=== PATIENT | female | born 1935 | race Caucasian/White ===

== ENCOUNTER → 2017-10-29 07:46 | Outpatient (CLI) | payer MEDICARE, SELFPAY ==
[2017-10-29 08:38] LABS: Basophils # 0.1 K/mm3 (0-0.2); Basophils % 0.8 % (0.1-2.0); Eosinophils # 0.3 K/mm3 (0.0-0.4); Eosinophils % 5.5 % (0.1-12.0); Hematocrit 46.6 % (37.0-47.0); Hemoglobin 15.1 g/dL (12.2-16.2); Lymphocytes # 3.4 K/mm3 (0.7-4.5); Lymphocytes % 57.2 K/mm3 (10-50); Mean Corpuscular HGB Conc 32.4 g/dL (31.8-35.4); Mean Corpuscular Hemoglobin 31.1 pg (27.0-31.2); Mean Corpuscular Volume 96.1 fl (81-99); Mean Platelet Volume 8.5 fl (7.4-10.4); Monocytes # 0.4 K/mm3 (0.1-1.0); Monocytes % 6.1 % (1.7-9.3); Neutrophils # 1.8 K/mm3 (1.8-7.8); Neutrophils % 30.5 % (37.0-80.0); Platelet Count 228 K/mm3 (142-424); Red Blood Count 4.85 M/mm3 (4.20-5.40); Red Cell Distribution Width 12.7 % (11.5-17.5); White Blood Count 5.9 K/mm3 (4.8-10.8)
[2017-10-29 08:40] LABS: MANUAL DIFFERENTIAL MANUAL DIFFERENTIAL (MANUAL DIFF)
[2017-10-29 10:42] LABS: Alanine Aminotransferase 33 U/L (12-78); Albumin Level 4.1 gm/dL (3.4-5.0); Albumin/Globulin Ratio 1.1 (1.1-1.8); Alkaline Phosphatase 91 U/L (46-116); Anion Gap 10.5 mEq/L (5-15); Aspartate Amino Transferase 26 U/L (15-37); Bilirubin,Total 0.4 mg/dL (0.2-1.0); Blood Urea Nitrogen 16 mg/dL (7-18); Calcium 9.8 mg/dL (8.5-10.1); Carbon Dioxide 31 mmol/L (21.0-32.0); Chloride 107 mmol/L (98-107); Chol/HDL Ratio 2.7 (1-3.5); Cholesterol 166 mg/dL (140-200); Creatinine,Serum 0.73 mg/dL (0.55-1.02); Estimated Glomerular Filt Rate 77 ml/min (>60); GFR (African American) 93 ML/MIN (>60); Globulin 3.6 gm/dl (1.3-3.2); Glucose 99 mg/dL (74-106); HDL Cholesterol 61 mg/dL (29-89); LDL Cholesterol 81 mg/dL (0-130); Potassium 4.5 mmoL/L (3.5-5.1); Sodium 144 mmol/L (136-145); Total Protein,Serum 7.7 gm/dL (6.4-8.2); Triglycerides 121 mg/dL (30-200); VLDL Cholesterol 24 mg/dL (0-40)
[2017-10-29 13:24] LABS: Eosinophils % 6 % (0-3); Lymphocytes % 55 % (10-50); Monocytes % 5 % (2-9); Neutrophils % 22 % (42-76); Total Cells Counted 100
[2017-10-29 13:26] LABS: Platelet Estimate Normal; RBC Morphology Normal
== END ==
PROVIDERS: Visit Provider Family Medicine
DX: E78.5 Hyperlipidemia, unspecified (principal)
CPT/HCPCS: 36415; 80053; 80061; 85007; 85025

== ENCOUNTER → 2018-02-03 09:01 | Outpatient (CLI) | payer MEDICARE, SELFPAY ==
--- NOTE | 2018-02-03 09:04 | MM_ITS ---
MM Dig screening mamm BI w/CAD ORDERING PHYSICIAN : Sandro Herrera MD PATIENT AGE: 82 years GENDER: Female COMPARISON: January 2017, 2015, December 2014. INDICATION: ITS.REASON: SCREENING No hormones no new complaints. Previous stereotactic biopsy left breast. Mother with breast cancer. TECHNIQUE: Standard CC and MLO images were obtained. R2 CAD reviewed. FINDINGS: Moderately dense breast tissue is seen at the central cone, and extending to the superior breast bilaterally Overall architecture is similar to previous studies with no dominant mass. There are numerous scattered benign calcifications bilaterally which appears similar to previous studies. Some loosely grouped but appear stable.. Multivessel Vascular calcifications again noted & can reflect associated underlying coronary artery disease RIGHT BREAST:No new findings of significant concern Numerous scattered punctate calcifications and as stated some are partially grouped but without significant change since previous studies a follow-up in one year would be adequate LEFT BREAST: No new findings of significant concern Numerous scattered punctate calcifications and as stated some are partially grouped but without significant change since previous studies a follow-up in one year would be adequate 2 metallic MicroMark marker from previous stereotactic biopsies at the precentral left breast again noted. IMPRESSION: ======== No new findings of significant concern. Follow-up in one year recommended Dense breast for age bilaterally decreased sensitivity mammography, as do the numerous scattered calcifications bilaterally most compatible with benign adenosis Bilateral follow-up in one year recommended for this age patient with above appearance BI-RADS Category: 2 Benign Finding(s) RECOMMENDED FOLLOW-UP: 1YR 1 YEAR FOLLOW-UP (A letter has been sent to the patient regarding results of the study.)
== END ==
PROVIDERS: PCP Family Medicine; Visit Provider Family Medicine
DX: Z12.31 Encounter for screening mammogram for malignant neoplasm of breast (principal)
CPT/HCPCS: 77067

== ENCOUNTER → 2018-04-17 14:36 | Outpatient (CLI) | payer MEDICARE, SELFPAY ==
--- NOTE | 2018-04-17 14:41 | NVE_ITS ---
Venous Exam Indications: 782.3 Edema. IMPRESSIONS 1. No evidence of deep vein thrombosis involving the right lower extremity 2. Acute superficial vein thrombosis involving the right great saphenous vein History: Varicose veins of the right lower extremity. Thrombophlebitis involving the right lower extremity. Medications: Aspirin, 81 mg daily. Patient noticed her right calf was tender 04/12/18. On 04/15/18 patient noticed new onset edema in the RLE. Patient has varicose veins with prominent, palpable "knotting" around the medial popliteal region. Patient denies trauma. Right lower extremity venous duplex evaluation. Doppler flow study including spectral analysis, color and nagel scale imaging. Location: Vascular laboratory. Patient status: Outpatient. CRITICAL FINDINGS - Reported to: Madeleine Caba - Read back and verified. - 04/17/18 - 15:15 - RLE positive for SVT in GSV Tables: Venous flow and imaging: + + + + Location Overall Flow properties + + + + Right common femoral Patent Normal phasicity; spontaneous; normal augmentation; compressible + + + + Right saphenofemoral Patent Compressible junction + + + + Right profunda femoral Patent Compressible + + + + Right femoral Patent Normal phasicity; spontaneous; normal augmentation; compressible + + + + Right greater saphenous Totally occluded Noncompressible + + + + Right popliteal Patent Normal phasicity ; spontaneous; normal augmentation; compressible + + + + Right posterior tibial Patent Compressible + + + + Right peroneal Patent Compressible + + + + Right gastrocnemius Patent Compressible + + + + Right soleal Patent Compressible + + + + (Report amended ) Electronically signed by: Donavan Sims [id number]
== END ==
PROVIDERS: PCP Physician Assistant; Visit Provider Physician Assistant
DX: I80.291 Phlebitis and thrombophlebitis of other deep vessels of right lower extremity (principal); R60.1 Generalized edema
CPT/HCPCS: 93971

== ENCOUNTER → 2018-11-04 10:10 | Outpatient (POV) | payer MEDICARE, SELFPAY | PROVIDERS: Visit Provider Dermatology | DX: Z00.00 Encounter for general adult medical examination without abnormal findings (principal) ==

== ENCOUNTER → 2018-12-11 06:56 | Outpatient (CLI) | payer MEDICARE, SELFPAY ==
[2018-12-11 08:03] LABS: Basophils # 0.1 K/mm3 (0-0.2); Basophils % 0.5 % (0.1-2.0); Eosinophils # 0.4 K/mm3 (0.0-0.4); Hematocrit 41.3 % (37.0-47.0); Hemoglobin 13.1 g/dL (12.2-16.2); Lymphocytes # 3.5 K/mm3 (0.7-4.5); Lymphocytes % 40.3 % (10-50); Mean Corpuscular HGB Conc 31.8 g/dL (31.8-35.4); Mean Corpuscular Hemoglobin 29.4 pg (27.0-31.2); Mean Corpuscular Volume 92.6 fl (81-99); Monocytes # 0.5 K/mm3 (0.1-1.0); Monocytes % 5.4 % (1.7-9.3); Neutrophils # 4.2 K/mm3 (1.8-7.8); Neutrophils % 48.8 % (37.0-80.0); Platelet Count 200 K/mm3 (142-424); Red Blood Count 4.46 M/mm3 (4.20-5.40); White Blood Count 8.6 K/mm3 (4.8-10.8)
[2018-12-11 08:34] LABS: Alanine Aminotransferase 31 U/L (12-78); Albumin Level 3.7 gm/dL (3.4-5.0); Albumin/Globulin Ratio 1.2 (1.1-1.8); Alkaline Phosphatase 83 U/L (46-116); Anion Gap 10.1 mEq/L (5-15); Aspartate Amino Transferase 18 U/L (15-37); Bilirubin,Total 0.4 mg/dL (0.2-1.0); Blood Urea Nitrogen 17 mg/dL (7-18); Carbon Dioxide 28 mmol/L (21.0-32.0); Chloride 108 mmol/L (98-107); Chol/HDL Ratio 3.1 (1-3.5); Cholesterol 161 mg/dL (140-200); Creatinine,Serum 0.76 mg/dL (0.55-1.02); Estimated Glomerular Filt Rate 73 ml/min (>60); GFR (African American) 88 ML/MIN (>60); Globulin 3.2 gm/dl (1.3-3.2); Glucose 91 mg/dL (74-106); HDL Cholesterol 52 mg/dL (29-89); LDL Cholesterol 89 mg/dL (0-130); Potassium 4.1 mmoL/L (3.5-5.1); Sodium 142 mmol/L (136-145); Total Protein,Serum 6.9 gm/dL (6.4-8.2); Triglycerides 99 mg/dL (30-200); VLDL Cholesterol 20 mg/dL (0-40)
[2018-12-12 17:53] LABS: Vitamin D 25 Hydroxy 31.3 ng/mL (30.0-100.0)
== END ==
PROVIDERS: PCP Family Medicine; Visit Provider Family Medicine
DX: E78.5 Hyperlipidemia, unspecified (principal); M85.89 Other specified disorders of bone density and structure, multiple sites
CPT/HCPCS: 36415; 80053; 80061; 82652; 85025

== ENCOUNTER → 2018-12-12 12:30 | Outpatient (CLI) | payer MEDICARE, SELFPAY ==
--- NOTE | 2018-12-12 12:36 | XR_ITS ---
XR DEXA axial skeleton HISTORY: ITS.REASON: OSTEOPENIA ORDERING PHYSICIAN: Sandro Herrera MD PATIENT AGE: 83 years COMPARISON: 09/03/2011 FINDINGS: The BMD measured at the Forearm radius 33% is 0.619 g/cm squared with a T score of -3.0. This is considered Osteoporotic according to the World Health Organization criteria. Fracture risk is High. Treatment is advised. The mean hip density has a T score of -1.4 which is decreased by 4.5%. IMPRESSION: Osteoporosis with high fracture risk. Treatment 5. Suggest follow-up exam November 2019
== END ==
PROVIDERS: PCP Family Medicine; Visit Provider Family Medicine
DX: M85.89 Other specified disorders of bone density and structure, multiple sites (principal); Z78.0 Asymptomatic menopausal state
CPT/HCPCS: 77080

== ENCOUNTER → 2019-03-06 09:32 | Outpatient (CLI) | payer MEDICARE, SELFPAY ==
--- NOTE | 2019-03-06 10:47 | MM_ITS ---
PROCEDURE: MM DIG SCREENING MAMM BI W/CAD Patient Age:83Y CLINICAL INDICATION: SCREENING routine screening mammogram. No hormones no new complaints. Previous stereotactic biopsy left breast benign results. Family history: Mother with breast cancer premenopausal. Maternal aunts with breast cancer COMPARISON: [facility] DIG MAMM-DX UNI-LT from 05/20/2013 [facility] DIG MAMM-SCREEN [place] from 01/27/2015 [facility] DIG MAMM-SCREEN [place] from 01/31/2016 [facility] DIG MAMM-SCREEN [place] W/CAD from 02/01/2017 [facility] MM Dig screening mamm BI w/CAD from 02/03/2018 TECHNIQUE: Standard CC and MLO images were obtained. R2 CAD reviewed. FINDINGS: Moderate breast density bilaterally scattered calcifications Right breast: Small tight cluster of tiny calcifications seen at the inferior/medial central left breast. These small calcifications seen to have some very slight progression on the MLO view., however on the CC view of the appear similar to 2017. Although more likely benign-and similar to previous areas previously sampled, this cluster a calcifications would benefit from magnification spot views 90 degree and CC view to further evaluate. Particularly with the patient's positive family history Left breast: Previous metallic marker from prior stereotactic biopsy deep central left breast; and another at at the medial left breast. There is a small grouping calcifications and medial breast a near this marker on CC view that seem to dissipate and scatter on MLO view. Most likely adenosis and I believe these are stable but suggest similar magnification views when patient returns for reference baseline IMPRESSION: Right breast: Small cluster of numerous small calcifications inferior medial, appear to have very slight progression on MLO view. Would benefit from magnification views to further evaluate Left breast: Small grouping of calcifications at the medial breast CC view, most likely adenosis and seems to dissipate on MLO view but would suggest magnification views here as well, when patient returns. BI-RAD Category: 0 Need Additional Imaging Evaluation FOLLOW-UP: IMM Immediate Follow-up Recommended (A letter has been sent to the patient regarding results of the study.) Dictated by: Hamilton Barnett MD 03/11/2019 10:26 Electronically signed by Hamilton Barnett MD in [place] 03/11/2019 10:26
== END ==
PROVIDERS: PCP Family Medicine; Visit Provider Family Medicine
DX: Z12.31 Encounter for screening mammogram for malignant neoplasm of breast (principal)
CPT/HCPCS: 77067

== ENCOUNTER → 2019-03-20 13:25 | Outpatient (CLI) | payer MEDICARE, SELFPAY ==
--- NOTE | 2019-03-20 13:29 | MM_ITS ---
PROCEDURE: MM DIG MAMM BI DX W/CAD CLINICAL INDICATION: ABNORMAL MAMM Abnormal calcifications, follow-up calcifications COMPARISON: [facility] DIG MAMM-SCREEN [place] W/CAD from 02/01/2017 [facility] MM Dig screening mamm BI w/CAD from 02/03/2018 MM DIG SCREENING MAMM BI W/CAD from 03/06/2019 TECHNIQUE: Standard CC and MLO images were obtained. R2 CAD reviewed. FINDINGS: Right breast: Cluster calcifications once again noted involving the inferior aspect of the right breast. They appear somewhat more numerous on the MLO view with some dystrophic calcifications noted at this area. Biopsy suggested. Left breast: Biopsy clips are present in the lower and lower inner aspect of the left breast. A cluster of calcification is noted in the the lower inner aspect of the left breast which is slightly increased in number. There is some mild dystrophic calcification noted. IMPRESSION: Bilateral mildly suspicious calcifications. Suggest bilateral stereotactic biopsy BI-RAD Category: 4 Suspicious Abnormality - Biopsy Considered FOLLOW-UP: BIO Biopsy Recommended the the (A letter has been sent to the patient regarding results of the study.) The the Dictated by: Donavan Sims MD 03/27/2019 10:03 Electronically signed by Donavan Sims MD in [place] 03/27/2019 10:03
== END ==
PROVIDERS: PCP Family Medicine; Visit Provider Family Medicine
DX: R92.8 Other abnormal and inconclusive findings on diagnostic imaging of breast (principal)
CPT/HCPCS: 77066

== ENCOUNTER → 2019-04-15 08:33 | Outpatient (CLI) | payer MEDICARE, SELFPAY ==
--- NOTE | 2019-04-15 | MM_ITS ---
PROCEDURE: MM surgical specimen RT CLINICAL INDICATION: Stereotactic biopsy COMPARISON: No exams were available for comparison TECHNIQUE: Specimen radiograph FINDINGS: Specimen radiograph demonstrated microcalcifications of interest IMPRESSION: Microcalcifications noted within the specimen radiograph Dictated by: Donavan Sims MD 04/17/2019 08:57 Electronically signed by Donavan Sims MD in [place] 04/17/2019 08:57
--- NOTE | 2019-04-15 08:37 | MM_ITS ---
PROCEDURE: MM STEREOTACTIC LOC RT Mammo clip placement Minimal surgical specimen CLINICAL INDICATION: CALCS SEEN ON MAMM TECHNIQUE: Informed consent was obtained prior to the procedure. Xanax 0.5 mg, Lortab 5 mg, and analgesia and minor sedation. The patient was placed on the stereotactic table and the abnormality was localized in the most appropriate projection. The breast was prepped in the routine manner, with sterile prep and the overlying skin anesthetized. A 3 to 4 mm skin incision was performed and the 9 gauge sorus vacuum-assisted core biopsy needle was advanced to the region of the calcification. Pre- and post fire images were obtained. After adequate positioning relative to the calcifications was ensured, multiple biopsies were obtained in the region of the calcifications specifically. The core biopsies obtained were sent for specimen mammography. After the calcifications were indeed identified on the specimen mammogram, the procedure was terminated. Specimen radiograph did demonstrate calcifications of interest. The patient tolerated the procedure well without complications. Specimen was sent for pathologic analysis which should be forthcoming within 3 working days. Routine follow-up phone call to patient is to be performed as well. A tiny titanium nonferromagnetic MicroMark was positioned through the mammotome needle into the biopsy site. Pathology: Proliferative fibrocystic changes with usual ductal hyperplasia. Apical metaplasia and dense stromal fibrosis. Microcalcifications are identified. Negative for in situ and invasive malignancy Post biopsy mammogram shows clip in place in satisfactory position with post biopsy changes in the lower inner right breast with removal of the suspicious calcifications. IMPRESSION: Successful stereotactic directed biopsy of the right breast with removal of the suspicious calcifications in the lower inner aspect of the right breast showing benign findings. Recommend six-month mammographic follow-up per routine protocol Dictated by: Donavan Sims MD 04/17/2019 08:52 Electronically signed by Donavan Sims MD in [place] 04/17/2019 08:52
--- NOTE | 2019-04-15 08:37 | MM_ITS ---
PROCEDURE: MM STEREOTACTIC LOC LT CLINICAL INDICATION: CALCS SEEN ON MAMM Abnormal mammogram showing no suspicious left breast calcifications FINDINGS: Informed consent was obtained prior to the procedure. TECHNIQUE: The patient was given 0.5 mg of Xanax, Lortab 5 mg, and analgesia and minor sedation. The patient was placed on the stereotactic table and the abnormality was localized in the most appropriate projection. The breast was prepped in the routine manner, with sterile prep and the overlying skin anesthetized. A 3 to 4 mm skin incision was performed and the 9 gauge sorus vacuum-assisted core biopsy needle was advanced to the region of the calcification. Pre- and post fire images were obtained. After adequate positioning relative to the calcifications was ensured, multiple biopsies were obtained in the region of the calcifications specifically. The core biopsies obtained were sent for specimen mammography. After the calcifications were indeed identified on the specimen mammogram, the procedure was terminated. The patient tolerated the procedure well without complications. Specimen was sent for pathologic analysis which should be forthcoming within 3 working days. Routine follow-up phone call to patient is to be performed as well. A tiny titanium nonferromagnetic MicroMark was positioned through the mammotome needle into the biopsy site. Pathology: Proliferative fibrocystic change. Usual ductal hyperplasia, apical in metaplasia and dense stromal fibrosis with microcalcifications. Negative for in situ and invasive malignancy Specimen radiograph demonstrated microcalcifications of interest. Post biopsy mammogram shows the clip in place in the lower inner aspect of the left breast with interval removal of the suspicious calcifications. IMPRESSION: Successful stereotactic directed biopsy of the left breast showing benign findings. Recommend six-month mammographic follow-up per routine protocol Dictated by: Donavan Sims MD 04/17/2019 08:57 Electronically signed by Donavan Sims MD in [place] 04/17/2019 08:57
--- NOTE | 2019-04-15 08:37 | MM_ITS ---
PROCEDURE: MM CLIP PLACEMENT BI CLINICAL INDICATION: CALCS SEEN ON MAMM The the she could go thank you COMPARISON: MM DIG MAMM BI DX W/CAD from 03/20/2019 MM STEREOTACTIC LOC LT from 04/15/2019 MM surgical specimen RT from 04/15/2019 MM SURGICAL SPECIMEN LT from 04/15/2019 MM STEREOTACTIC LOC RT from 04/15/2019 TECHNIQUE: Standard CC and MLO images were obtained. R2 CAD reviewed. FINDINGS: Post biopsy changes are present in the lower inner quadrant of both breasts with post biopsy clips present. Previously noted microcalcifications have been removed IMPRESSION: Successful bilateral stereotactic breast biopsy with microcalcifications removed BI-RAD Category: 2 Benign Finding(s) FOLLOW-UP: 6M 6Month Follow-up (A letter has been sent to the patient regarding results of the study.) Dictated by: Donavan Sims MD 04/17/2019 08:59 Electronically signed by Donavan Sims MD in [place] 04/17/2019 08:59
== END ==
PROVIDERS: PCP Family Medicine; Visit Provider Family Medicine
DX: R92.8 Other abnormal and inconclusive findings on diagnostic imaging of breast (principal); N63.24 Unspecified lump in the left breast, lower inner quadrant; N63.14 Unspecified lump in the right breast, lower inner quadrant
CPT/HCPCS: 19081; 76098; 77066; 88305

== ENCOUNTER → 2020-03-08 07:45 | Outpatient (CLI) | payer MEDICARE, SELFPAY ==
--- NOTE | 2020-03-08 07:49 | MM_ITS ---
PROCEDURE: MM DIG SCREENING MAMM BI W/CAD Digital Breast Tomosynthesis Included CLINICAL INDICATION: SCREENING There is a history of breast cancer in the patient's mother and maternal aunts. There have been previous biopsies on each breast for benign disease. COMPARISON: MG MM CLIP PLACEMENT BI from 04/15/2019 MG MM SURGICAL SPECIMEN RT from 04/15/2019 MG MM SURGICAL SPECIMEN LT from 04/15/2019 TECHNIQUE: Standard CC and MLO images and 3D Tomosynthesis was obtained. R2 CAD reviewed. FINDINGS: Prominent somewhat heterogenic fibroglandular densities are seen in the central portions of both breasts. There are biopsy clips in each breast. There is moderate arterial calcification in each breast and there are few scattered benign-appearing calcifications in each breast. There is a small benign-appearing nodular density with smooth borders deep within the left breast. It is best seen on the hernan views CC projection. Though this likely is a benign cyst or fibroadenoma recommend the patient return for ultrasound left breast for confirmation. There are no suspicious microcalcifications. IMPRESSION: Moderately and diffusely dense parenchymal pattern with benign-appearing density left breast BI-RAD Category: 0 Need Additional Imaging Evaluation FOLLOW-UP: IMM Immediate Follow-up Recommended (A letter has been sent to the patient regarding results of the study.) Dictated by: Dr. Eliceo Lara MD 03/11/2020 11:48 Dr. Eliceo Lara MD in [place] 03/11/2020 11:48
--- NOTE | 2020-03-08 07:49 | XR_ITS ---
PROCEDURE: XR DEXA AXIAL SKELETON CLINICAL HISTORY: OSTEOPOROSIS COMPARISON: No exams were available for comparison FINDINGS: The right hip BMD is 0.634 with a T-score of -1.9. The left hip BMD is 0.626 with a T-score of -2.0. The right forearm BMD is 0.383 with a T-score of -3.6 IMPRESSION: This patient is considered osteoporotic according to the World Health Organization criteria. Fracture risk is high. Treatment is advised. Based on these results a follow-up exam is recommended in 1 year. Dictated by: Donavan Sims MD 03/09/2020 04:21 Donavan Sims MD in [place] 03/09/2020 04:21
== END ==
PROVIDERS: PCP Family Medicine; Visit Provider Family Medicine
DX: Z12.31 Encounter for screening mammogram for malignant neoplasm of breast (principal); M81.0 Age-related osteoporosis without current pathological fracture
CPT/HCPCS: 77063; 77067; 77080

== ENCOUNTER → 2020-03-18 10:40 | Outpatient (CLI) | payer MEDICARE, SELFPAY ==
--- NOTE | 2020-03-18 10:47 | US_ITS ---
PROCEDURE: US BREAST LT COMPLETE CLINICAL INDICATION: ABN MAMM OF L BREAST COMPARISON: US BB US BREAST-[place] from 03/20/2013 MG MM DIG SCREENING MAMM BI W/CAD from 03/08/2020 FINDINGS: There is somewhat diffuse heterogenic echogenicity consistent with a rather heterogenic dense breast parenchyma on the recent mammogram. There is a small benign-appearing cystic lesion at the o'clock position near the nipple measuring 0.3 x 0.3 by 0.4 cm with a couple of tiny internal echoes likely debris. There is a larger benign-appearing cystic lesion at the 3 o'clock position near the nipple with internal septation measuring 0.7 x 0.7 by 0.8 cm. There is a 3rd oval cystic lesion 10 o'clock position near the nipple measuring 0.6 x 0.3 by 0.4 cm with no internal echoes. There is a small hypoechoic lesion near the nipple her o'clock position measuring 0.4 x 0.3 by 0.3 cm. This has faint internal echoes and likely is a complex cyst. There is no suspicious solid lesion. There is no definite sonographic abnormality at the site of the tiny new density deep within the central portion of the breast. . There are normal nodes in the axilla. IMPRESSION: Multiple small benign-appearing cystic lesions some which may be complex cysts and recommend the patient continue with yearly screening mammography. Dictated by: Dr. Eliceo Lara MD 03/18/2020 11:19 Dr. Eliceo Lara MD in [place] 03/18/2020 11:19
== END ==
PROVIDERS: PCP Family Medicine; Visit Provider Family Medicine
DX: R92.8 Other abnormal and inconclusive findings on diagnostic imaging of breast (principal)
CPT/HCPCS: 76641

== ENCOUNTER 2020-03-23 09:15 | Outpatient (CLI) | payer MEDICARE, SELFPAY ==
[2020-03-23 09:40] VITALS: BP 137/73; PULSE 71; RESP 18; TEMP 36.4; O2SAT 98
== END 2020-03-23 09:40 | disposition home or self-care (01) ==
LOC: INF 09:19
PROVIDERS: Visit Provider Family Medicine
DX: M81.0 Age-related osteoporosis without current pathological fracture (principal)
CPT/HCPCS: 96372; J0897

== ENCOUNTER 2020-11-04 09:35 | Outpatient (CLI) | payer MEDICARE, SELFPAY ==
[2020-11-04 09:55] VITALS: BP 120/73; PULSE 65; RESP 16; TEMP 36.6; O2SAT 96
== END 2020-11-04 09:57 | disposition home or self-care (01) ==
LOC: INF 09:45
PROVIDERS: Visit Provider Family Medicine
DX: M81.0 Age-related osteoporosis without current pathological fracture (principal)
CPT/HCPCS: 96372; J0897

== ENCOUNTER → 2021-01-06 15:47 | Outpatient (CLI) | payer MEDICARE, SELFPAY ==
--- NOTE | 2021-01-06 15:50 | CA_ITS ---
APPROVED REPORT Right Lower Extremity Venous Study for DVT. Brim Edge Trimmer: CT Indications Lower Extremity Pain: Right RLE red and warm to touch at popliteal fossa Vein Imaging CFV (R): compressive, spontaneous, phasic, augmentation SFJ (R): compressive, spontaneous, phasic, augmentation FEM (R): compressive, spontaneous, phasic, augmentation POP (R): compressive, spontaneous, phasic, augmentation DFV (R): compressive, spontaneous, phasic, augmentation PTV (R): compressive, spontaneous, phasic, augmentation GSV (R): Partially Compressible SSV (R): Not Visualized Peroneals (R):compressive, spontaneous, phasic, augmentation GAS (R): compressive, spontaneous, phasic, augmentation Findings RLE negative for DVT. RLE positive for SVT in the GSV. Conclusion RLE negative for DVT. RLE positive for SVT in the GSV. Critical Notification Critical Value: Yes Date: 01/06/2021 Time: 16:18 Physician Name: Shavon Report Read Back Electronically signed by : Donavan Sims MD 01/09/2021 16:06:58
== END ==
PROVIDERS: PCP Family Medicine; Visit Provider Family Medicine
DX: R60.0 Localized edema (principal); M79.661 Pain in right lower leg
CPT/HCPCS: 93971

== ENCOUNTER → 2022-08-13 08:12 | Outpatient (CLI) | payer MEDICARE, SELFPAY ==
--- NOTE | 2022-08-13 08:22 | XR_ITS ---
FINAL REPORT TECHNIQUE: Bone densitometry calculations of the right forearm and right hip were obtained. CLINICAL HISTORY: . post menopausal screening FINDINGS: DEXA BONE DENSITY AXIAL SKELETON Using the right forearm, the bone mineral density of the total is 0.333 g/cm2, corresponding to T-score of -4.6 and a Z-score of -0.1. This is worse from the prior exam which measured 0.383 g/cm2, corresponding to T-score of -3.6 and a Z-score of -0.4. Using the right hip, the bone mineral density of the femoral neck is 0.609 g/cm2, corresponding to a T-score of -2.2 and a Z-score of 0.3. This is worse from the prior exam which measured 0.634 g/cm2, corresponding to T-score of -1.9 and a Z-score of 0.5. NOTE: T-score: Standard deviation compared with peak bone mass of young adult mean. *Following the recommendations of the International Society of Bone Densitometry, classification of hip BMD is based on the lower of two T-scores; total hip or femoral neck. IMPRESSION: Diminished bone mineral density consistent with osteoporosis of the right forearm. Diminished bone mineral density of the right hip consistent with osteopenia. FRAX 10 year fracture risk is 5% for a hip fracture and 15% for a major osteoporotic fracture. Reviewed, Interpreted and Dictated by Lori Suh MD Transcribed by Desiree Tom Authenticated and [facility]
== END ==
PROVIDERS: PCP Family Medicine; Visit Provider Family Medicine
DX: Z78.0 Asymptomatic menopausal state (principal)
CPT/HCPCS: 77080

== ENCOUNTER 2023-09-03 09:02 | Emergency (ER) | payer MEDICARE, SELFPAY ==
[2023-09-03] VITALS (8 sets, daily range): BP systolic 131–147; BP diastolic 61–83; PULSE 58–76; RESP 16; TEMP 36.7–36.8; O2SAT 97–99; BMI 21.7
--- NOTE | 2023-09-03 09:12 | XR_ITS ---
FINAL REPORT CLINICAL HISTORY: fall, LEFT SIDED RIB PAIN COMPARISON: None FINDINGS: Two views of the chest were obtained. The heart size and pulmonary vascularity are within normal limits. The mediastinum is normal. There is mild biapical scarring and pleural thickening. No acute pulmonary abnormality is identified. There is no pneumothorax. The bony thorax is intact. IMPRESSION: No active cardiopulmonary disease. Reviewed, Interpreted and Dictated by Jabier Reed III, MD Transcribed by Aziza Zhao Authenticated and [facility]
--- NOTE | 2023-09-03 09:12 | XR_ITS ---
FINAL REPORT CLINICAL HISTORY: fall, left-sided rib/chest pain COMPARISON: None FINDINGS: 2 views of the left ribs were obtained. There is no displaced, acute fracture identified. The visualized lungs are clear. No pneumothorax is identified. IMPRESSION: No displaced rib fracture or pneumothorax identified. Reviewed, Interpreted and Dictated by Jabier Reed III, MD Transcribed by Aziza Zhao Authenticated and [facility]
--- NOTE | 2023-09-03 09:16 | ECG_ITS ---
APPROVED REPORT Exam: Resting ECG HR:64 bpm ECG Measurements Heart Rate 64 AXES RI 162 P 69 QRSd 88 QRS -26 QT 385 T 34 QTc 395 Conclusion SINUS RHYTHM BORDERLINE LEFT AXIS DEVIATION [QRS AXIS < -20] BORDERLINE ECG UNCONFIRMED REPORT Electronically signed by : KYARA BERNSTEIN, 09/04/2023 06:09:06
--- NOTE | 2023-09-03 09:17 | PC.NURSE ---
rounded on pt to see if they had any needs. None at this time offered a warm blanket and the pt stated she would like one. Retrieved a blanket for the pt
--- NOTE | 2023-09-03 09:46 | PC.NURSE ---
DR MARCUS AT BEDSIDE
--- NOTE | 2023-09-03 09:51 | CT_ITS ---
FINAL REPORT TECHNIQUE: Axial CT images were performed from the lung apices through the upper abdomen. Coronal reformats were submitted. This study was performed with techniques to keep radiation doses as low as reasonably achievable (ALARA). Individualized dose reduction techniques using automated exposure control or adjustment of mA and/or kV according to the patient's size were employed. CLINICAL HISTORY: R sided pain after fall, concern for rib fx FINDINGS: There is no axillary adenopathy. There are several mildly enlarged mediastinal nodes, favor reactive. Heart size is normal. There is no pericardial or pleural effusion. Limited images of the upper abdomen are unremarkable. No suspicious infiltrate or nodule is identified on lung window images. Biapical pleural scarring is identified. There is mild atelectasis. There is no rib fracture or pneumothorax. IMPRESSION: No rib fracture or pneumothorax. Reviewed, Interpreted and Dictated by Jabier Reed III, MD Transcribed by Lawanda Echeverria Authenticated and [facility]
--- NOTE | 2023-09-03 09:51 | HMH.EDGENADL ---
Discharge Plan Disposition Patient Disposition: Home, Self-Care Condition: Good Prescriptions Prescriptions: New lidocaine 5 % adhesive patch,medicated 1 patch topical Q24H Qty: 15 0RF Rx Instructions: leave on most painful area for up to 12 hrs No Action simvastatin 40 MG tablet 40 mg PO DAILY Referrals Follow up/Referrals: Sandro Herrera MD [Primary Care Provider] - See instructions Activity Restrictions/Add. Instructions Additional Instructions/Restrictions: You have been evaluated in the ED for your complaints. You may follow-up with your PCP in the next 3 to 5 days. Please return to ED for any new or worsening symptoms. As discussed, please take Tylenol and ibuprofen [id number] over the next few days to assist with your pain. I have also provided you with lidocaine patches to further assist. Clinical Impressions Clinical Impression: Fall, Rib pain on left side Instructions Patient Instructions: How to Prevent Falls, DI for Musculoskeletal Pain Discharge ED Provider: Dc Luna Adult HPI General Chief complaint: Fall Stated complaint: [email or web address], Lt side pain Time Seen by Provider: 09/03/23 09:09 Mode of Arrival: Wheelchair Limitations: No Limitations Description of Symptoms (Recalled from ER Triage Doc. by RN): PT WITH C/O LEFT SIDED RIB PAIN AFTER A FALL ABOUT 0400, UNWITNESSED. DENIES LOC. NO PAIN WITH BREATHING. RIGHT ANKLE SWELLING BUT STATES PT DOES A LOT OF STANDING DOING HER PUZZLES. History of Present Illness HPI narrative: 87-year-old female with past medical history significant for GERD and Alzheimer dementia, presents today with family for evaluation concerning left-sided rib pain after having a fall around 4 AM. The fall was unwitnessed. Patient states that she did not hit her head and must have hit her left ribs on dresser. Denies any other associated injuries. Denies any shortness of breath, fevers, chills, abdominal pain, extremity pain or any other associated symptoms at this time. Related Data Home Medications Medication Instructions Recorded Confirmed simvastatin 40 mg tablet 40 mg PO DAILY chloesterol 03/23/20 03/23/20 Previous Rx's Medication Instructions Recorded lidocaine 5 % topical patch 1 patch topical Q24H #15 ea 09/03/23 Allergies Allergy/AdvReac Type Severity Reaction Status Date / Time Nonsteroidal Allergy Unknown Uncoded 06/18/17 14:43 Antiinflammatory Drug Opioid Allergy Unknown Uncoded 06/18/17 14:43 [facility] Disclaimer: The information contained in this section may have been updated after the patient was seen, as this information can be updated by other users. Social History Smoking Status: Never smoker alcohol intake: never current occupational status: employed Travel in the last 8 weeks: None household members: none housing: house ROS Obtained: Yes All systems reviewed & no additional complaints except as documented Physical Exam General General appearance: alert and in no apparent distress Head Head exam: atraumatic and normocephalic Eye Eye exam: Present normal appearance, PERRL and EOMI ENT ENT exam: Present normal oropharynx and mucous membranes moist Neck Neck exam: Present full ROM; Absent meningismus Chest Chest inspection: Present tenderness (Tenderness palpation over the left mid rib cage. No external signs of trauma.) Respiratory Respiratory exam: Absent respiratory distress, wheezes, stridor or accessory muscle use Cardiovascular Cardiovascular exam: Present normal rhythm Abdominal Exam Abdominal exam: Present soft; Absent distention, tenderness, guarding, rebound or rigidity Back Exam Comment: No midline tenderness palpation along the C/T/L-spine. Neurological Exam Neurological exam: Present alert, oriented X3 and CN II-XII intact; Absent motor sensory deficit Psychiatric Psychiatric exam: Present normal affect and normal mood Skin Skin exam: Present warm and dry Medical Decision Making Medical Records Medical records reviewed: Yes I reviewed the patient's medical records. Roberto Inquiry Pt receiving controlled substance: No Roberto was queried for this patient: No Vital Signs: 09/03/23 09:03 09/03/23 09:30 09/03/23 10:30 Temperature 98.3 F Temperature Source Oral Pulse Rate 70 62 Pulse Rate [Right Radial] 76 Respiratory Rate 16 Blood Pressure 147/66 H 141/69 H Blood Pressure [Right Arm] 140/67 Blood Pressure Mean 93 Blood Pressure Mean [Right Arm] 91 Blood Pressure Source [Right Arm] Automatic Cuff Blood Pressure Position [Right Arm] Sitting 02 Sat by Pulse Oximetry 98 97 98 Oxygen Delivery Method Room Air Room Air 09/03/23 11:00 09/03/23 11:30 09/03/23 12:00 Temperature Temperature Source Pulse Rate 62 67 65 Pulse Rate [Right Radial] Respiratory Rate Blood Pressure 131/61 140/83 142/68 H Blood Pressure [Right Arm] Blood Pressure Mean 102 Blood Pressure Mean [Right Arm] Blood Pressure Source [Right Arm] Blood Pressure Position [Right Arm] 02 Sat by Pulse Oximetry 98 98 98 Oxygen Delivery Method Room Air Room Air 09/03/23 12:30 Temperature Temperature Source Pulse Rate 58 L Pulse Rate [Right Radial] Respiratory Rate Blood Pressure 143/67 H Blood Pressure [Right Arm] Blood Pressure Mean Blood Pressure Mean [Right Arm] Blood Pressure Source [Right Arm] Blood Pressure Position [Right Arm] 02 Sat by Pulse Oximetry 99 Oxygen Delivery Method Room Air Orders (Tests/Meds): ED MEDICATIONS Discontinued Medications Generic Name Dose Route Start Last Admin Trade Name Jamie PRN Reason Stop Dose Admin Acetaminophen 1,000 mg 09/03/23 09:56 09/03/23 10:16 Acetaminophen 500mg Tab PO 09/03/23 09:57 1,000 mg ONCE ONE Administration Ibuprofen 600 mg 09/03/23 09:56 09/03/23 10:16 Ibuprofen 600 Mg Tablet PO 09/03/23 09:57 600 mg ONCE ONE Administration Lidocaine 1 each 09/03/23 09:56 09/03/23 10:16 Lidocaine 5% Transdermal Patch TP 09/03/23 09:57 1 each ONCE ONE Administration ORDERS Category Date Time Status CT chest wo con Stat Cat Scan 09/03/23 09:51 Completed XR chest 2V Stat Exams 09/03/23 09:12 Completed XR ribs LT 2V Stat Exams 09/03/23 09:12 Completed CBC w/Auto Diff [Complete Blood Count Auto Diff] Stat Lab 09/03/23 09:16 Ordered CMP [Comprehensive Metabolic Panel] Stat Lab 09/03/23 09:16 Ordered Magnesium Stat Lab 09/03/23 09:17 Ordered Urinalysis and Microscopic Stat Lab 09/03/23 09:16 Ordered ECG Data Tracing #1: I reviewed this ECG and interpreted as documented below: EKG personally interpreted by me. Normal sinus rhythm with rate of [address] elevations noted. Medical Decision Narrative: 87-year-old female with past medical history significant for GERD and Alzheimer dementia, presents today with family for evaluation concerning left-sided rib pain after having a fall around 4 AM. The fall was unwitnessed. Patient states that she did not hit her head and must have hit her left ribs on dresser. On assessment, the patient was hemodynamically stable and in no acute distress. Afebrile. She did have tenderness to palpation that was reproducible over the left mid rib cage. Appropriate oxygen saturation on room air. No midline translocation of the C/T/L-spine. At her baseline. Other physical exam findings unremarkable. Differential diagnoses include not limited to rib fracture, contusion, musculoskeletal pain, among others. I did order for an EKG and it did not show any findings concerning for ischemia. Chest x-ray as well as rib x-ray were ordered to assess for fracture however none were noted. I did order for CT scan of the chest without contrast to further assess and there were no acute abnormalities noted per radiology report. On reassessment the patient remains medically stable and in no acute distress. She stated that her pain was improved with Tylenol ibuprofen and lidocaine patch. I discussed ED workup results with patient/family and current plan to discharge with supportive care measures. Provided with return ED precautions and instructions concerning PCP follow-up. They verbalized understanding and agreed with plan. Subsequently discharged home hemodynamically stable and in no acute distress. Critical Care Critical Care Time Critical Care Time: No
--- NOTE | 2023-09-03 09:58 | PC.NURSE ---
PT gone to RAD
[2023-09-03] MEDS: IBUPROFEN 600 MG TABLET PO (10:16)
[2023-09-03] MEDS: ACETAMINOPHEN 500MG TAB 1000 MG PO (10:16)
[2023-09-03] MEDS: LIDOCAINE 5% TRANSDERMAL PATCH 1 EACH TP (10:16)
--- NOTE | 2023-09-03 11:13 | PC.NURSE ---
Rounded on pt to see if they had any needs. pt had no needs at this time
--- NOTE | 2023-09-03 11:37 | PC.NURSE ---
Family asking how much longer it is going to take. Reassured that the doctor is making rounds.
--- NOTE | 2023-09-03 11:40 | PC.NURSE ---
FAMILY UPDATED AT THIS TIME, CONCERNS THAT PT WAS HERE FIRST AND FAMILY BELIEVES THEY SHOULD HAVE ALREADY BEEN DISCHARGED. EXPLAINED TO FAMILY THAT [facility]CI[facility] HAVE PRESENTED AND THE ED MD WILL BE AROUND SOON POSSIBLE TO UPDATE NO FURTHER NEEDS AT THIS TIME
--- NOTE | 2023-09-03 12:32 | PC.NURSE ---
FAMILY UPDATED AT THIS TIME. DR MARCUS WILL BE AT BEDSIDE SOON POSSIBLE
--- NOTE | 2023-09-03 12:50 | PC.NURSE ---
Dr. Luna at to update family on results
== END 2023-09-03 13:00 | disposition home or self-care (01) ==
PROVIDERS: Emergency Provider Emergency Medicine; PCP Family Medicine
DX: R07.81 Pleurodynia (principal); G30.9 Alzheimer's disease, unspecified; F02.80 Dementia in other diseases classified elsewhere, unspecified severity, without behavioral disturbance, psychotic disturbance, mood disturbance, and anxiety; K21.9 Gastro-esophageal reflux disease without esophagitis; W01.190A Fall on same level from slipping, tripping and stumbling with subsequent striking against furniture, initial encounter
CPT/HCPCS: 71046; 71100; 71250; 93005; 99284

== ENCOUNTER 2024-05-01 17:31 | Emergency (ER) | payer MEDICARE, SELFPAY ==
[2024-05-01 17:31] VITALS: BP 155/78; PULSE 84; RESP 13; TEMP 36.7; O2SAT 98; BMI 22.1
--- NOTE | 2024-05-01 17:41 | CT_ITS ---
PROCEDURE INFORMATION: Exam: CT Cervical Spine Without Contrast Exam date and time: 05/01/2024 6:11 PM Age: 88 years old Clinical indication: Injury or trauma; Fall; Blunt trauma; Additional info: Fall, trauma TECHNIQUE: Imaging protocol: Computed tomography of the cervical spine without contrast. Radiation optimization: All CT scans at this facility use at least one of these dose optimization techniques: automated exposure control; mA and/or kV adjustment per patient size (includes targeted exams where dose is matched to clinical indication); or iterative reconstruction. COMPARISON: CT FACIAL BONES WO CON 05/01/2024 6:09 PM FINDINGS: Bones: There is anterolisthesis C3-C4 and C7-T1. There is no anterior wedging deformity. No acute lucent fracture lines are seen. Spondylitic changes are most prominent at C3-C4 through C6-C7. There is severe cervical facet arthropathy. No severe central canal stenosis demonstrated by CT. Neural foraminal stenosis is seen at C3-C4 through C6-C7. Lungs: Pleural-parenchymal scarring at the lung apices. Soft tissues: Unremarkable. IMPRESSION: 1. No acute cervical spinal injury demonstrated by CT. 2. Degenerative changes of the cervical spine.
--- NOTE | 2024-05-01 17:41 | CT_ITS ---
PROCEDURE INFORMATION: Exam: CT Head Without Contrast Exam date and time: 05/01/2024 6:07 PM Age: 88 years old Clinical indication: Injury or trauma; Fall; Blunt trauma (contusions or hematomas); Additional info: Fall, trauma TECHNIQUE: Imaging protocol: Computed tomography of the head without contrast. Radiation optimization: All CT scans at this facility use at least one of these dose optimization techniques: automated exposure control; mA and/or kV adjustment per patient size (includes targeted exams where dose is matched to clinical indication); or iterative reconstruction. COMPARISON: CT HEAD/BRAIN WO CON 05/01/2024 6:07 PM FINDINGS: Brain: There are global involutional changes of the brain which are in keeping with the patient's age. Periventricular hypodensities are nonspecific but most likely reflect chronic microvascular ischemic disease. There is no acute intracranial hemorrhage or abnormal extra-axial fluid collection identified. There is no intracranial mass effect or shift of midline structures. The nagel-white differentiation is preserved throughout. There is no sulcal effacement. The basilar cisterns are open. Cerebral ventricles: No hydrocephalus or ventricular effacement. Paranasal sinuses: There is mild sinus mucosal disease, with no air-fluid level identified. Mastoid air cells: There is no mastoid effusion detected. Bones: No calvarial fracture or destructive osseous lesions are seen. Soft tissues: Unremarkable. IMPRESSION: 1. No acute intracranial hemorrhage, mass effect or midline shift. 2. Involutional changes of the brain in keeping with the patient's age, with findings of chronic microvascular ischemic disease.
--- NOTE | 2024-05-01 17:41 | CT_ITS ---
PROCEDURE INFORMATION: Exam: CT Maxillofacial Without Contrast Exam date and time: 05/01/2024 6:09 PM Age: 88 years old Clinical indication: Injury or trauma; Fall; Blunt trauma (contusions or hematomas); Forehead; Additional info: Fall, trauma TECHNIQUE: Imaging protocol: Computed tomography of the face without contrast. Radiation optimization: All CT scans at this facility use at least one of these dose optimization techniques: automated exposure control; mA and/or kV adjustment per patient size (includes targeted exams where dose is matched to clinical indication); or iterative reconstruction. COMPARISON: CT FACIAL BONES WO CON 05/01/2024 6:09 PM FINDINGS: Paranasal sinuses: There is minimal sinus mucosal disease, with no air-fluid level identified. Orbital cavities: The optic globes are intact bilaterally. The orbital conal contents are unremarkable. Mastoid air cells: The visualized mastoids are clear. Teeth: For dentition is noted. Bones: No acute fracture is seen. Well-defined, nonaggressive right frontal bone lesion may reflect enchondroma. Soft tissues: Right frontal scalp injury. IMPRESSION: No acute facial fracture identified.
--- NOTE | 2024-05-01 17:43 | HMH.EDGENADL ---
Discharge Plan Disposition Patient Disposition: Home, Self-Care Condition: Good Prescriptions Prescriptions: No Action simvastatin 40 MG tablet 40 mg PO DAILY lidocaine 5 % adhesive patch,medicated 1 patch topical Q24H Qty: 15 0RF Rx Instructions: leave on most painful area for up to 12 hrs Referrals Follow up/Referrals: Provider,Referral, MD [Referring] - See instructions Activity Restrictions/Add. Instructions Additional Instructions/Restrictions: You were evaluated in the emergency department today. Please keep the wound clean and dry. It is okay if it gets wet in the shower, but do not submerge under any water. Do not rub the area, as it can make the sutures dissolve or come out early. Sutures will dissolve on their own over the next 7 days. They do not need to be removed. Please follow-up closely with primary care for reassessment. Return to the emergency department for new or worsening symptoms. Clinical Impressions Clinical Impression: Forehead laceration Instructions Patient Instructions: DI for Laceration Repair Print Language Print Language: [place] Discharge ED Provider: Ladan Pérez General Adult HPI General Chief complaint: Wound/Laceration Stated complaint: fall Time Seen by Provider: 05/01/24 17:37 Mode of Arrival: Wheelchair Source of Information: Patient and Relative Limitations: No Limitations Description of Symptoms (Recalled from ER Triage Doc. by RN): pt presents to ED with c/o fall and laceration to right christianity and upper cheek. pts daughter reports pt does have dementia. pt lives with son and daughter. pts daughter reports they left pt at home to go to grocery store and they got a call from a neighbor that the pt had fallen. History of Present Illness HPI narrative: This patient is an 88-year-old female with history of hyperlipidemia presenting to the emergency department for evaluation with concern for fall with head injury. Patient reports that she was walking outside when she slipped and fell. She did hit the right side of her head on concrete. She did not lose consciousness. She complains of facial pain but no other pain noted at this time. She did suffer a wound to her forehead. She was well prior to this. She does not take aspirin or blood thinners. Related Data Home Medications ?Medication ?Instructions ?Recorded ?Confirmed simvastatin 40 mg tablet 40 mg PO DAILY chloesterol 03/23/20 03/23/20 Previous Rx's ?Medication ?Instructions ?Recorded lidocaine 5 % topical patch 1 patch topical Q24H #15 ea 09/03/23 Allergies Allergy/AdvReac Type Severity Reaction Status Date / Time Nonsteroidal Allergy Unknown Uncoded 06/18/17 14:43 Antiinflammatory Drug Opioid Allergy Unknown Uncoded 06/18/17 14:43 PFSH [facility] Disclaimer: The information contained in this section may have been updated after the patient was seen, as this information can be updated by other users. Social History Smoking Status: Never smoker alcohol intake: never current occupational status: employed Travel in the last 8 weeks: None household members: none housing: house ROS Obtained: Yes All systems reviewed & no additional complaints except as documented Physical Exam General General appearance: alert and in no apparent distress Head Head exam: normocephalic and other (2 cm laceration above the right eyebrow that is hemostatic. Some surrounding bruising. No palpable step-offs or deformity) Eye Eye exam: Present normal appearance, PERRL and EOMI ENT ENT exam: Present normal exam, normal oropharynx, mucous membranes moist and normal external ear exam Neck Neck exam: Present normal inspection, full ROM and trachea midline; Absent tenderness Chest Chest inspection: Present normal inspection and symmetric chest wall rise; Absent tenderness Respiratory Respiratory exam: Present normal lung sounds bilaterally; Absent respiratory distress, wheezes, stridor or accessory muscle use Cardiovascular Cardiovascular exam: Present regular rate and normal rhythm Abdominal Exam Abdominal exam: Present soft; Absent distention, tenderness or guarding Extremities Exam Extremities exam: Present normal inspection, full ROM and normal capillary refill; Absent tenderness or edema Back Exam Back exam: Present normal inspection and full ROM; Absent tenderness Neurological Exam Neurological exam: Present alert, oriented X3 and CN II-XII intact; Absent motor sensory deficit Psychiatric Psychiatric exam: Present normal affect and normal mood Skin Skin exam: Present warm and dry Medical Decision Making Medical Records Medical records reviewed: Yes I reviewed the patient's medical records. Screening: Per USPSTF and CDC recommendations, given the prevalence of disease in our region, it is our hospital?s policy to screen for HIV and viral Hepatitis for all patients aged 18 and over and those with ongoing risk factors. Roberto Inquiry Pt receiving controlled substance: No Vital Signs: 05/01/24 17:31 05/01/24 17:45 05/01/24 18:15 Temperature 98.1 F Temperature Source Oral Pulse Rate 70 66 Pulse Rate [Left Radial] 84 Respiratory Rate 13 Blood Pressure [Right Arm] 155/78 H Blood Pressure Mean [Right Arm] 103 02 Sat by Pulse Oximetry 98 98 98 Oxygen Delivery Method Room Air 05/01/24 18:30 05/01/24 18:45 Temperature Temperature Source Pulse Rate 66 65 Pulse Rate [Left Radial] Respiratory Rate Blood Pressure [Right Arm] Blood Pressure Mean [Right Arm] 02 Sat by Pulse Oximetry 99 98 Oxygen Delivery Method Lab Data Lab results reviewed: Yes I reviewed the patient's lab results. Orders (Tests/Meds): ED MEDICATIONS Discontinued Medications Generic Name Dose Route Start Last Admin Trade Name Freq PRN Reason Stop Dose Admin Lidocaine/Epinephrine 20 ml 05/01/24 17:42 05/01/24 18:20 Lidocaine 1% W/Epi 1:100,000 20ml Vial IJ 05/01/24 17:43 20 ml ONCE ONE Administration Tetanus/Reduced Diphtheria/Acell Pertussis 0.5 ml 05/01/24 17:42 05/01/24 18:20 Tet/Diphth/Pert-Adult 0.5ml Syringe IM 05/01/24 17:43 0.5 ml .ONCE ONE Administration ORDERS Category Date Time Status CT cervical spine wo con Stat Cat Scan 05/01/24 17:[address] facial bones wo con Stat Cat Scan 05/01/24 17:[address] head/brain wo con Stat Cat Scan 05/01/24 17:41 Completed HIV (1&2) Antibody Rapid Stat Lab 05/01/24 17:38 Ordered Hep C Ab with Reflex to RNA Stat Lab 05/01/24 17:38 Ordered Medical Decision Narrative: In summary, this patient is a 88-year-old female presenting to the Emergency Department for evaluation of fall with head injury. Differential diagnoses considered include but are not limited to facial fracture, laceration, head trauma, intracranial hemorrhage, C-spine fracture, polytrauma. Ruling out the most morbid conditions drove assessment. It should be noted patient's history includes dementia which is not at goal therapy. This complicates all aspects of care by increasing patient's risk for morbidity. On exam, the patient is lying in bed in no acute distress with no Concerns or complaints of pain except for facial pain. She is alert and neurologically intact. She does have a laceration above the right eyebrow. Workup included CT head, CT face, CT C-spine without contrast. Tdap booster was administered. I independently interpreted CT scans prior to the radiologist read and noted no acute fracture or intracranial hemorrhage. Please see their read for final interpretation. On reassessment with the patient is resting comfortably with reassuring vital signs on cardiac telemetry. She remains neurologically intact. After informed consent was obtained, her laceration was repaired. Please see procedure note for further documentation. Given reassuring imaging and exam, it is felt that he is appropriate for discharge home with instructions for close follow-up with PCP and strict return precautions. Family was given instructions for wound care. She was discharged after all questions were answered Procedures Laceration Laceration 1: Site: face Side (If applicable): right Size (cm): 2 Description: linear Depth: simple, single layer Local Anesthetic: lidocaine 1% and with epi Amount of anesthesia used (mL): 2 Pre-repair: wound explored, irrigated extensively and deep structures intact Skin layer closed with: other (Fast-absorbing gut) Size (cm): 5-0 Number of sutures: 3 Technique: simple, interrupted Critical Care Critical Care Time Critical Care Time: No
[2024-05-01 17:45] VITALS: PULSE 70; O2SAT 98
[2024-05-01 18:15] VITALS: PULSE 66; O2SAT 98
[2024-05-01] MEDS: TET/DIPHTH/PERT-ADULT 0.5ML SYRINGE 0.5 ML IM (18:20)
[2024-05-01] MEDS: LIDOCAINE 1% W/EPI 1:100,000 20ML VIAL 20 ML IJ (18:20)
[2024-05-01 18:30] VITALS: PULSE 66; O2SAT 99
[2024-05-01 18:45] VITALS: PULSE 65; O2SAT 98
[2024-05-01 19:17] VITALS: BP 155/78; PULSE 86; RESP 18; TEMP 36.8; O2SAT 98
== END 2024-05-01 19:27 | disposition home or self-care (01) ==
PROVIDERS: Emergency Provider Emergency Medicine; PCP Family Medicine
DX: S01.81XA Laceration without foreign body of other part of head, initial encounter (principal); G50.1 Atypical facial pain; Z23 Encounter for immunization; F03.90 Unspecified dementia, unspecified severity, without behavioral disturbance, psychotic disturbance, mood disturbance, and anxiety; W01.0XXA Fall on same level from slipping, tripping and stumbling without subsequent striking against object, initial encounter; Z91.81 History of falling; Y93.01 Activity, walking, marching and hiking; Y92.007 Garden or yard of unspecified non-institutional (private) residence as the place of occurrence of the external cause
CPT/HCPCS: 70450; 70486; 72125; 90471; 90715; 99284